=== PATIENT | female | born 1995 | race Caucasian/White ===

== ENCOUNTER 2021-07-19 12:18 | Day surgery (SDC) | payer BC ==
[2021-07-19 13:09] VITALS: BMI 37.7
[2021-07-19] MEDS ORDERED: hydrALAZINE 20 MG/ML VIAL SLOW IVP PRN (14:04)
== END 2021-07-19 16:02 | disposition home or self-care (01) ==
LOC: CSHLD/OP 12:18
PROVIDERS: ATTEND Obstetrics & Gynecology
DX: O47.1 False labor at or after 37 completed weeks of gestation (principal); Z3A.33 33 weeks gestation of pregnancy; Z88.0 Allergy status to penicillin; Z88.8 Allergy status to other drugs, medicaments and biological substances
CPT/HCPCS: 76819

== ENCOUNTER 2021-08-15 17:55 | Day surgery (SDC) | payer BC ==
[2021-08-15] MEDS ORDERED: hydrALAZINE 20 MG/ML VIAL SLOW IVP PRN (18:24)
[2021-08-15 18:28] VITALS: BMI 39.8
[2021-08-15 18:51] LABS: #Eosinphils 0.1 10x3/uL (0.0-0.5); #Monocytes 0.9 10x3/uL (0.0-1.1); #Neutrophils 10.7 10x3/uL (1.5-8.4); %Basophils 0.2 % (0.0-2.0); %Eosinophils 0.5 % (0.0-6.0); %Lymphocytes 19.4 % (18.0-47.0); %Monocytes 5.8 % (0.0-10.0); %Neutrophils 73.7 % (40.0-75.0); Mean Corpuscular Volume 82.9 fl (81.6-98.3); Mean Platelet Volume 10.5 fl (7.4-10.4); Platelet Count 255 10x3/uL (150-450); RBC Distribution Width 13.1 % (11.5-14.5); Red Blood Cell (RBC) Count 4.14 10x6/uL (3.90-5.03); White Blood Cell (WBC) Count 14.6 10x3/uL (3.5-10.5)
[2021-08-15 18:58] LABS: Creatinine, Urine 39.92 mg/dL (47-110); Protein, Urine Random Quant Less than 10 mg/dL (1-14)
[2021-08-15] MEDS ORDERED: Acetaminophen 500 MG TAB PO SCH (19:00)
[2021-08-15 19:03] LABS: ALT (SGPT) 7 U/L (8-55); AST (SGOT) 13 U/L (5-34); Albumin 3.1 g/dL (3.5-5.0); Alkaline Phosphatase 174 U/L (40-110); Anion Gap 15 mmol/L (10-20); BUN (Urea Nitrogen) 7 mg/dL (7.0-18.7); Bilirubin, Total 0.3 mg/dL (0.2-1.2); Calc. Creatinine Clearance 224 mL/min (70-130); Calcium 8.6 mg/dL (7.8-10.44); Carbon Dioxide 20 mmol/L (22-29); Chloride 107 mmol/L (98-107); Globulin 2.9 g/dL (2.4-3.5); Glucose 111 mg/dL (70-105); Potassium 3.8 mmol/L (3.5-5.1); Sodium 138 mmol/L (136-145)
== END 2021-08-15 19:50 | disposition home or self-care (01) ==
LOC: CSHLD/OP 17:55
PROVIDERS: ATTEND Obstetrics & Gynecology
DX: O99.891 Other specified diseases and conditions complicating pregnancy (principal); R03.0 Elevated blood-pressure reading, without diagnosis of hypertension; R10.9 Unspecified abdominal pain; Z3A.36 36 weeks gestation of pregnancy; Z88.0 Allergy status to penicillin
CPT/HCPCS: 36415; 80053; 82570; 84156; 85025; 99283

== ENCOUNTER 2021-08-17 21:51 | Day surgery (SDC) | payer BC ==
[2021-08-17] MEDS ORDERED: hydrALAZINE 20 MG/ML VIAL SLOW IVP PRN (23:28)
== END 2021-08-17 23:03 | disposition home or self-care (01) ==
LOC: CSHLD/OP 21:51
PROVIDERS: ATTEND Obstetrics & Gynecology
DX: O99.891 Other specified diseases and conditions complicating pregnancy (principal); R03.0 Elevated blood-pressure reading, without diagnosis of hypertension; Z3A.37 37 weeks gestation of pregnancy; Z88.0 Allergy status to penicillin; Z88.8 Allergy status to other drugs, medicaments and biological substances
CPT/HCPCS: 99282

== ENCOUNTER 2021-09-01 10:35 | Outpatient (CLI) | payer BC | END 2021-09-01 10:36 | disposition home or self-care (01) | LOC: CSHLAB 10:35 | PROVIDERS: ATTEND Advanced Practice Midwife | DX: Z20.822 Contact with and (suspected) exposure to COVID-19 (principal) | CPT/HCPCS: 87811 ==

== ENCOUNTER 2021-09-05 05:30 | Inpatient (IN) | payer BC ==
[2021-09-05 05:52] VITALS: BMI 40.0
[2021-09-05] MEDS ORDERED: Bupivacaine 0.25% HCL 30 ML VIAL ONE (07:00)
[2021-09-05] MEDS ORDERED: Bupivacaine HCl 0.5%/Epinephrine 1:200,000/PF 30 ml Vial ONE (07:00)
[2021-09-05] MEDS ORDERED: Butorphanol Tartrate 1 MG/ML VIAL SLOW IVP PRN (07:22)
[2021-09-05] MEDS ORDERED: Methylergonovine 0.2 MG/ML VIAL IM PRN (07:22)
[2021-09-05] MEDS ORDERED: Carboprost 250 MCG/ML AMP IM PRN (07:22)
[2021-09-05] MEDS ORDERED: Promethazine HCl 25 MG/ML VIAL IM PRN ×2 (07:22→21:53)
[2021-09-05] MEDS ORDERED: Ibuprofen 800 MG TAB PO PRN (07:22)
[2021-09-05] MEDS ORDERED: Diphenoxylate HCl/Atropine Tablet PO PRN (07:22)
[2021-09-05] MEDS ORDERED: Misoprostol 200 MCG TAB PR PRN (07:22)
[2021-09-05] MEDS ORDERED: Acetaminophen 500 MG TAB PO PRN (07:22)
[2021-09-05] MEDS ORDERED: hydrALAZINE 20 MG/ML VIAL SLOW IVP PRN (07:22)
[2021-09-05] MEDS ORDERED: HYDROcodone/Acetaminophen 5/325 mg Tablet PO PRN ×2 (07:22)
[2021-09-05] MEDS ORDERED: Lidocaine 1% (PF) 30 ML VIAL SC PRN (07:22)
[2021-09-05] MEDS ORDERED: NS w/ Oxytocin 30 units 500 ML IV SCH (07:30)
[2021-09-05] MEDS ORDERED: Misoprostol 100 MCG TAB VAG SCH (07:30)
[2021-09-05] MEDS ORDERED: Misoprostol 100 MCG TAB ONE (07:38)
[2021-09-05 07:44] LABS: Hemoglobin 11.8 g/dL (12.0-15.5); Mean Corpuscular HGB CONC 34.3 g/dL (32.0-36.0); Mean Corpuscular Hemoglobin 28.9 pg (27.0-33.0); Mean Corpuscular Volume 84.1 fl (81.6-98.3); Mean Platelet Volume 11.4 fl (7.4-10.4); Platelet Count 246 10x3/uL (150-450); RBC Distribution Width 13.2 % (11.5-14.5); Red Blood Cell (RBC) Count 4.09 10x6/uL (3.90-5.03); White Blood Cell (WBC) Count 13.7 10x3/uL (3.5-10.5)
[2021-09-05 08:35] LABS: Hep B Surf Ag Non-Reactive S/CO (NonReactive)
[2021-09-05 08:37] LABS: Syphilis Antibody Nonreactive (Nonreactive); Syphilis Antibody Index 0.05 S/CO (<1.00 Non-Reactive)
[2021-09-05 08:51] LABS: HBSAg Index 0.19 S/CO (0-0.99)
[2021-09-05 14:28] LABS: ALT (SGPT) 9 U/L (8-55); AST (SGOT) 14 U/L (5-34); Albumin 2.9 g/dL (3.5-5.0); Alkaline Phosphatase 210 U/L (40-110); Anion Gap 13 mmol/L (10-20); BUN (Urea Nitrogen) 6 mg/dL (7.0-18.7); Bilirubin, Total 0.3 mg/dL (0.2-1.2); Calc. Creatinine Clearance 218 mL/min (70-130); Calcium 8.9 mg/dL (7.8-10.44); Carbon Dioxide 22 mmol/L (22-29); Chloride 107 mmol/L (98-107); Estimated GFR 127; Globulin 2.9 g/dL (2.4-3.5); Glucose 97 mg/dL (70-105); Potassium 3.8 mmol/L (3.5-5.1); Protein, Total 5.8 g/dL (6.0-8.3); Sodium 138 mmol/L (136-145); Uric Acid 5.1 mg/dL (2.6-6.0)
[2021-09-05] MEDS ORDERED: Fentanyl 2 mcg/Bup 0.1% Cadd 100 ML ONE (21:13)
[2021-09-05] MEDS: Lactated Ringer's 1,000 ML IV SCH ×2 (21:33→23:25)
[2021-09-05] MEDS ORDERED: ePHEDrine Sulfate 50 MG/10 ML VIAL SLOW IVP PRN (21:53)
[2021-09-05] MEDS ORDERED: Lactated Ringer's 500 ML IV PRN (21:53)
[2021-09-05] MEDS ORDERED: Naloxone HCl 0.4 mg/ml Vial IVP PRN ×2 (21:53)
[2021-09-05] MEDS ORDERED: Ondansetron PF 4 MG/2 ML Vial IVP PRN (21:53)
[2021-09-05] MEDS ORDERED: diphenhydrAMINE 50 MG/ML VIAL IVP PRN (21:53)
[2021-09-05] MEDS ORDERED: Moisturizing Cream (Eucerin) 113 GM JAR TOP PRN (21:53)
[2021-09-05] MEDS ORDERED: Communication Order-Pharmacy FS SCH (22:00)
[2021-09-05] MEDS: Ondansetron PF 4 MG/2 ML Vial IVP PRN (22:35)
[2021-09-06] MEDS: NS w/ Oxytocin 30 units 500 ML IV SCH ×2 (03:40→17:57)
[2021-09-06] MEDS: Fentanyl 2 mcg/Bupivacaine 0.1% Cassette 100 ML EPIDURAL SCH ×3 (05:52→21:30)
[2021-09-06] MEDS: Lactated Ringer's 1,000 ML IV SCH ×2 (16:30→22:39)
[2021-09-06] MEDS ORDERED: Calcium Carbonate 500 MG ChewTAB PO SCH (17:45)
[2021-09-06] MEDS: Ondansetron PF 4 MG/2 ML Vial IVP PRN (18:39)
[2021-09-06] MEDS ORDERED: Azithromycin 500 MG VIAL ONE (22:15)
[2021-09-06] MEDS ORDERED: CEFAZOLIN 2 GM VIAL ONE (22:34)
[2021-09-06] MEDS ORDERED: ceFAZolin 2 GM/Dextrose 50 ML 2 GM in Premix Bag 1 BAG IVPB SCH (22:45)
[2021-09-06] MEDS ORDERED: Ketorolac Tromethamine 30 MG/ML VIAL ONE (22:54)
[2021-09-06] MEDS ORDERED: Dexamethasone 4 mg/ml Vial ONE (22:54)
[2021-09-06] MEDS ORDERED: Ondansetron PF 4 MG/2 ML Vial ONE (22:54)
[2021-09-06] MEDS ORDERED: Lidocaine 2% MPF 10 ML AMP (For Epidural Use) ONE (22:54)
[2021-09-06] MEDS ORDERED: Azithromycin 500 MG in Sodium Chloride 0.9% 250 ML 250 ML IVPB SCH (23:00)
[2021-09-06] MEDS ORDERED: Morphine PF 10 MG/10 ML VIAL ONE (23:11)
[2021-09-06] MEDS ORDERED: Tranexamic Acid 1,000 MG/10 ML VIAL ONE (23:30)
[2021-09-06] MEDS ORDERED: Oxytocin 10 UNITS/ML VIAL ONE ×2 (23:31→23:55)
[2021-09-06] MEDS ORDERED: Esmolol 100 MG/10 ML VIAL ONE (23:33)
[2021-09-06] MEDS ORDERED: Ondansetron PF 4 MG/2 ML Vial IVP PRN (23:43)
[2021-09-06] MEDS ORDERED: Misoprostol 200 MCG TAB PR PRN (23:43)
[2021-09-06] MEDS ORDERED: HYDROcodone/Acetaminophen 5/325 mg Tablet PO PRN ×2 (23:43)
[2021-09-06] MEDS ORDERED: Acetaminophen 325 MG TAB PO PRN (23:43)
[2021-09-06] MEDS ORDERED: Lanolin Ointment 7 GM TUBE TOP PRN (23:43)
[2021-09-06] MEDS ORDERED: Simethicone Chewable 80 MG TAB PO PRN (23:43)
[2021-09-06] MEDS ORDERED: Promethazine HCl 25 MG/ML VIAL IM PRN (23:43)
[2021-09-06] MEDS ORDERED: diphenhydrAMINE 25 MG CAP PO PRN (23:43)
[2021-09-06] MEDS ORDERED: hydrALAZINE 20 MG/ML VIAL SLOW IVP PRN (23:43)
[2021-09-06] MEDS ORDERED: Bisacodyl 10 MG SUPP PR PRN (23:43)
[2021-09-06] MEDS ORDERED: NS w/ Oxytocin 30 units 500 ML IV SCH (23:45)
[2021-09-07] MEDS ORDERED: diphenhydrAMINE 50 MG/ML VIAL IVP PRN (00:10)
[2021-09-07] MEDS ORDERED: Ondansetron HCl/PF 4 MG/2 ML Vial IVP PRN (00:10)
[2021-09-07] MEDS ORDERED: Moisturizing Cream (Eucerin) 113 GM JAR TOP PRN (00:10)
[2021-09-07] MEDS ORDERED: Naloxone HCl 0.4 mg/ml Vial IVP PRN ×2 (00:10)
[2021-09-07] MEDS ORDERED: Fentanyl 100 MCG/2 ML VIAL SLOW IVP PRN (00:10)
[2021-09-07] MEDS ORDERED: Promethazine HCl 25 MG SUPP PR PRN (00:10)
[2021-09-07] MEDS ORDERED: Naloxone HCl 0.4 mg/ml Vial IV PRN (00:10)
[2021-09-07] MEDS ORDERED: Promethazine HCl 25 MG/ML VIAL IM PRN (00:10)
[2021-09-07] MEDS ORDERED: Meperidine HCl/PF 25 MG/ML VIAL SLOW IVP PRN (00:10)
[2021-09-07] MEDS ORDERED: Ondansetron PF 4 MG/2 ML Vial IVP PRN ×2 (00:10→02:28)
[2021-09-07] MEDS ORDERED: Communication Order-Pharmacy FS SCH (00:15)
[2021-09-07 01:20] LABS: D-Dimer Test 3.96 mg/L FEU (0.19-0.50); INR-International Normal Ratio 0.9; PTT 28.2 sec (22.0-33.0)
[2021-09-07] MEDS ORDERED: HYDROcodone/Acetaminophen 5/325 mg Tablet PO PRN ×3 (02:28→12:15)
[2021-09-07] MEDS ORDERED: diphenhydrAMINE 25 MG CAP PO PRN (02:28)
[2021-09-07] MEDS ORDERED: Misoprostol 200 MCG TAB PR PRN (02:28)
[2021-09-07] MEDS ORDERED: hydrALAZINE 20 MG/ML VIAL SLOW IVP PRN (02:28)
[2021-09-07] MEDS ORDERED: Lanolin Ointment 7 GM TUBE TOP PRN (02:28)
[2021-09-07] MEDS ORDERED: NS w/ Oxytocin 30 units 500 ML IV SCH (02:28)
[2021-09-07] MEDS ORDERED: Bisacodyl 10 MG SUPP PR PRN (02:28)
[2021-09-07] MEDS ORDERED: Acetaminophen 325 MG TAB PO PRN (02:28)
[2021-09-07] MEDS: Ketorolac Tromethamine 30 MG/ML VIAL IVP SCH ×2 (05:36→12:14)
[2021-09-07] MEDS ORDERED: Ibuprofen 800 MG TAB PO SCH (06:00)
[2021-09-07] MEDS: Lactated Ringer's 1,000 ML IV SCH (06:47)
[2021-09-07] MEDS: Ferrous Sulfate 325 MG TAB PO SCH (07:45)
[2021-09-07] MEDS: Acetaminophen 325 MG TAB PO PRN (08:42)
[2021-09-07] MEDS: Prenatal Vitamin 1 TAB PO SCH (08:42)
[2021-09-07] MEDS: Docusate 100 MG CAP PO SCH ×2 (08:42→21:18)
[2021-09-07] MEDS ORDERED: [UNRECOGNIZED DRUG - REMARK] PO SCH (09:00)
[2021-09-07] MEDS ORDERED: Ferrous Sulfate 325 MG TAB PO SCH (09:00)
[2021-09-07] MEDS ORDERED: Prenatal Vitamin 1 TAB PO SCH (09:00)
[2021-09-07] MEDS ORDERED: Docusate 100 MG CAP PO SCH (09:00)
[2021-09-07] MEDS: Ibuprofen 800 MG TAB PO SCH (21:18)
[2021-09-08] MEDS ORDERED: Ibuprofen 800 MG TAB PO SCH (00:19)
[2021-09-08] MEDS: Ferrous Sulfate 325 MG TAB PO SCH ×3 (01:51→20:34)
[2021-09-08] MEDS: Acetaminophen 325 MG TAB PO PRN ×3 (03:53→16:25)
[2021-09-08] MEDS: Ibuprofen 800 MG TAB PO SCH ×3 (05:46→21:33)
[2021-09-08 05:47] LABS: Hemoglobin 7.9 g/dL (12.0-15.5); Mean Corpuscular HGB CONC 34.5 g/dL (32.0-36.0); Mean Corpuscular Hemoglobin 29.6 pg (27.0-33.0); Mean Corpuscular Volume 85.8 fl (81.6-98.3); Platelet Count 185 10x3/uL (150-450); RBC Distribution Width 13.5 % (11.5-14.5); Red Blood Cell (RBC) Count 2.67 10x6/uL (3.90-5.03); White Blood Cell (WBC) Count 19.3 10x3/uL (3.5-10.5)
[2021-09-08] MEDS: Docusate 100 MG CAP PO SCH ×2 (08:50→20:34)
[2021-09-08] MEDS: Prenatal Vitamin 1 TAB PO SCH (08:50)
[2021-09-08] MEDS: HYDROcodone/Acetaminophen 5/325 mg Tablet PO PRN (20:33)
[2021-09-09] MEDS: Ibuprofen 800 MG TAB PO SCH (05:15)
[2021-09-09 05:36] VITALS: TEMP 98
[2021-09-09] MEDS: HYDROcodone/Acetaminophen 5/325 mg Tablet PO PRN ×2 (06:32→11:07)
[2021-09-09 07:56] VITALS: BP 125/70
[2021-09-09] MEDS: Docusate 100 MG CAP PO SCH (09:00)
[2021-09-09] MEDS: Ferrous Sulfate 325 MG TAB PO SCH (09:00)
[2021-09-09] MEDS: Prenatal Vitamin 1 TAB PO SCH (09:00)
== END 2021-09-09 13:10 | disposition home or self-care (01) | DRG 787 ==
LOC: CSHLD 05:32 → CSHPP 09-07 02:10
PROVIDERS: ADMIT Obstetrics & Gynecology; ATTEND Obstetrics & Gynecology
PROC: 3E0P7VZ Introduction of Hormone into Female Reproductive, Via Natural or Artificial Opening (ICD-10-PCS; 2021-09-05)
PROC: 0U7C7ZZ Dilation of Cervix, Via Natural or Artificial Opening (ICD-10-PCS; 2021-09-05)
PROC: 10907ZC Drainage of Amniotic Fluid, Therapeutic from Products of Conception, Via Natural or Artificial Opening (ICD-10-PCS; 2021-09-06)
PROC: 10H07YZ Insertion of Other Device into Products of Conception, Via Natural or Artificial Opening (ICD-10-PCS; 2021-09-06)
PROC: 10D00Z1 Extraction of Products of Conception, Low, Open Approach (ICD-10-PCS; principal; 2021-09-07)
DX: O99.52 Diseases of the respiratory system complicating childbirth (principal); D62 Acute posthemorrhagic anemia; O99.344 Other mental disorders complicating childbirth; O32.8XX0 Maternal care for other malpresentation of fetus, not applicable or unspecified; O62.1 Secondary uterine inertia; Z37.0 Single live birth; O61.0 Failed medical induction of labor; O69.81X0 Labor and delivery complicated by cord around neck, without compression, not applicable or unspecified; F41.9 Anxiety disorder, unspecified; J45.909 Unspecified asthma, uncomplicated; O90.81 Anemia of the puerperium; O13.5 Gestational [pregnancy-induced] hypertension without significant proteinuria, complicating the puerperium; O62.2 Other uterine inertia; Z88.1 Allergy status to other antibiotic agents; Z88.8 Allergy status to other drugs, medicaments and biological substances; Z3A.39 39 weeks gestation of pregnancy
CPT/HCPCS: 36415; 51702; 80053; 84550; 85027; 85049; 85300; 85362; 85379; 85384; 85610; 85730; 86780; 86850; 86900; 86901; 87340; J0456; J0595; J0690; J1100; J1885; J2274; J2405; J2590; J7050; J7120; S0020

== ENCOUNTER 2021-09-14 20:00 | Emergency (ER) | payer BC ==
[~2021-09-14 20:00] MED LIST: Iopamidol 300 61% 100 ML VIAL FS ONE
[2021-09-14] MEDS ORDERED: Acetaminophen 500 MG TAB ONE (21:31)
[2021-09-14 21:42] LABS: #Monocytes 0.9 10x3/uL (0.0-1.1); #Neutrophils 13.1 10x3/uL (1.5-8.4); %Basophils 0.2 % (0.0-2.0); %Lymphocytes 13.2 % (18.0-47.0); %Monocytes 5.5 % (0.0-10.0); %Neutrophils 80.7 % (40.0-75.0); Hemoglobin 9.7 g/dL (12.0-15.5); Mean Corpuscular HGB CONC 32.7 g/dL (32.0-36.0); Mean Corpuscular Hemoglobin 28.6 pg (27.0-33.0); Mean Corpuscular Volume 87.6 fl (81.6-98.3); Mean Platelet Volume 9.5 fl (7.4-10.4); Platelet Count 487 10x3/uL (150-450); RBC Distribution Width 13.1 % (11.5-14.5); Red Blood Cell (RBC) Count 3.39 10x6/uL (3.90-5.03); White Blood Cell (WBC) Count 16.3 10x3/uL (3.5-10.5)
[2021-09-14 21:43] LABS: Anion Gap 12 mmol/L (10-20); BUN (Urea Nitrogen) 10 mg/dL (7.0-18.7); Calc. Creatinine Clearance 0 mL/min (70-130); Carbon Dioxide 23 mmol/L (22-29); Chloride 104 mmol/L (98-107); Potassium 3.8 mmol/L (3.5-5.1); Sodium 135 mmol/L (136-145)
[2021-09-14 21:44] LABS: ALT (SGPT) Less than 6 U/L (8-55); AST (SGOT) 16 U/L (5-34); Albumin 3.5 g/dL (3.5-5.0); Alkaline Phosphatase 124 U/L (40-110); Bilirubin, Total 0.2 mg/dL (0.2-1.2); Calcium 9.3 mg/dL (7.8-10.44); Estimated GFR 113; Globulin 2.7 g/dL (2.4-3.5); Glucose 78 mg/dL (70-105); Protein, Total 6.2 g/dL (6.0-8.3)
[2021-09-14 22:14] LABS: SARS-CoV-2 NAA Rapid Test Not Detected (NotDetected)
[2021-09-14 22:25] LABS: Bilirubin Neg (Negative); Blood, Urine 250 (Negative); Clarity Clear (Clear); Glucose, Urine (Dipstick) Normal (Negative); Ketone, Urine Negative (Negative); Leukocyte 500 (Negative); Nitrite Negative (Negative); Protein, Urine (Dipstick) 15 mg/dl (Neg-Trace); Specific Gravity, Urine 1.005 (1.002-1.036); Urobilinogen Normal mg/dL (Less than 2)
[2021-09-14] MEDS ORDERED: cefTRIAXone\\ROCEPHIN 2 GM VIAL ONE (22:46)
[2021-09-14 23:02] LABS: Bacteria/HPF Rare-Few HPF (None Seen); Mucous/LPF Rare LPF (<2+); Squamous Epithelial 0-3 HPF (0-3)
== END 2021-09-14 23:30 | disposition home or self-care (01) ==
LOC: CSHERS 20:00
DX: O86.4 Pyrexia of unknown origin following delivery (principal); O86.22 Infection of bladder following delivery; Z20.822 Contact with and (suspected) exposure to COVID-19
CPT/HCPCS: 36415; 71045; 74177; 80053; 81003; 81015; 83605; 85025; 87040; 96365; J0696; Q9967; U0002